=== PATIENT | female | born 1960 | race Caucasian/White ===

== ENCOUNTER → 2020-06-13 | Outpatient (CLI) | payer BC ==
--- NOTE | 2020-06-15 09:27 | MM ---
Reason for exam: screening (asymptomatic). History: Patient is postmenopausal. Family history of breast cancer in mother at age 68. Benign cyst aspiration of the right breast, July 27, 2004. Lumpectomy of the right breast, 1994. Cyst aspiration of the right breast. Physical Findings: A clinical breast exam by your physician is recommended on an annual basis and results should be correlated with mammographic findings. MG Screening Mammo w CAD Bilateral CC and MLO view(s) were taken. No prior studies available for comparison. The breast tissue is heterogeneously dense. This may lower the sensitivity of mammography. No significant changes when compared with prior studies. ASSESSMENT: Negative, BI-RAD 1 RECOMMENDATION: Routine screening mammogram of both breasts in 1 year.
== END | disposition home or self-care (01) ==
LOC: RADMAMWWP 07:55
PROVIDERS: ATTEND Internal Medicine
DX: Z12.31 Encounter for screening mammogram for malignant neoplasm of breast (principal)
CPT/HCPCS: 77067

== ENCOUNTER → 2021-10-17 | Outpatient (CLI) | payer BC ==
--- NOTE | 2021-10-19 09:33 | MM ---
Reason for exam: screening (asymptomatic). Last mammogram was performed 1 year and 4 months ago. History: Patient is postmenopausal. Family history of breast cancer in mother at age 68. Benign cyst aspiration of the right breast, July 27, 2004. Lumpectomy of the right breast, 1994. Cyst aspiration of the right breast. Physical Findings: A clinical breast exam by your physician is recommended on an annual basis and results should be correlated with mammographic findings. MG Screening Mammo w CAD Bilateral CC and MLO view(s) were taken. Prior study comparison: June 13, 2020, bilateral MG screening mammo w CAD. No significant changes when compared with prior studies. ASSESSMENT: Benign, BI-RAD 2 RECOMMENDATION: Routine screening mammogram of both breasts in 1 year.
== END | disposition home or self-care (01) ==
LOC: RADMAMWWP 07:29
PROVIDERS: ATTEND Internal Medicine
DX: Z12.31 Encounter for screening mammogram for malignant neoplasm of breast (principal)
CPT/HCPCS: 77067

== ENCOUNTER → 2023-12-24 | Outpatient (CLI) | payer MEDICARE ==
--- NOTE | 2023-12-24 20:33 | BD ---
EXAMINATION TYPE: Axial Bone Density DATE OF EXAM: 12/24/2023 CLINICAL HISTORY: 63 years old Female. ICD-10 CODE: N958 MENOPAUSE AND PERIMENOPAUSAL DISORDERS Height: 64 Weight: 159.3 FRAX RISK QUESTIONS: Alcohol (3 or more units per day): no Family History (Parent hip fracture): no Glucocorticoids (More than 3mos): no (Ex: prednisone, prednisolone, methylprednisolone, dexamethasone, and hydrocortisone). History of Fracture in Adulthood: yes Secondary Osteoporosis: 1. Type 1 Diabetes: no 2. Hyperthyroidism: no 3. Menopause before 45: yes 4. Malnutrition: no 5. Chronic liver disease: no Rheumatoid Arthritis: no Current Tobacco Use: no RISK FACTORS HISTORY OF: History of Wrist Fracture: left/ 2002 When: Surgery to Spine/Hip(right/left)/Wrist (right/left): no EXAM MEASUREMENTS: Bone mineral densitometry was performed using the [employer] System. Bone mineral density as measured about the Lumbar spine is: ----- L1-L4(G/cm2): 0.870 T Score Values are as follows: ----- L1: -2.7 ----- L2: -2.8 ----- L3: -2.3 ----- L4: -2.7 ----- L1-L4: -2.6 Z Score Values are as follows: ----- L1: -1.4 ----- L2: -1.5 ----- L3: -0.9 ----- L4: -1.4 ----- L1-L4: -1.2 Bone mineral density : baseline Bone mineral density about the R hip (g/cm2): 0.750 Bone mineral density about the L hip (g/cm2): 0.799 T Score values are as follows: -----R Neck: -2.3 -----L Neck: -1.8 -----R Total: -2.0 -----L Total: -1.7 Z Score values are as follows: -----R Neck: -1.0 -----L Neck: -0.5 -----R Total: -1.0 -----L Total: -0.6 Bone mineral density : baseline FRAX%s: The graph provided illustrates a 19.7% chance for a major osteoporotic fx and a 3.8% chance f or the hips probability for fx in 10 years time. IMPRESSION: Osteoporosis (T Score less than -2.5). There is increased fracture risk and therapy is usually indicated based on age. Re-Screen 1-2 years. NOTE: T-SCORE=SD OF THE YOUNG ADULT MEAN.
--- NOTE | 2023-12-25 18:42 | MM ---
Reason for Exam: Screening (asymptomatic). Last mammogram was performed 1 year(s) and 1 month(s) ago. Patient History: Menarche at age 14. First Full-Term at age 21. Postmenopausal. Cyst Aspiration on the Right side. 1994, Lumpectomy on the Right side. 07/27/2004, Benign Cyst Aspiration on the right side. Mother had breast cancer, age 68. Risk Values: Susan 5 year model risk: 2.9%. NCI Lifetime model risk: 10.7%. Prior Study Comparison: 06/13/2020 Bilateral Screening Mammogram, [facility]. 10/17/2021 Bilateral Screening Mammogram, [facility]. 11/27/2022 Bilateral MG screening mammo w CAD, [facility]. Tissue Density: The breasts are heterogeneously dense, which may obscure small masses. Findings: Analyzed By CAD. Microclip right breast from prior biopsy. Grouped and regional microcalcifications subareolar left breast not well seen previously. Further magnification views are recommended. Overall Assessment: Incomplete: need additional imaging evaluation, BI-RAD 0 Management: Special View Mammogram of the left breast. . [facility] will attempt to contact patient to return for supplemental views. Electronically signed and approved by: Stacy Kapadia M.D. Radiologist
== END | disposition home or self-care (01) ==
LOC: RADBDWWP 10:16
PROVIDERS: ATTEND Internal Medicine
DX: Z12.31 Encounter for screening mammogram for malignant neoplasm of breast (principal); M81.0 Age-related osteoporosis without current pathological fracture; M85.89 Other specified disorders of bone density and structure, multiple sites; N95.8 Other specified menopausal and perimenopausal disorders; Z78.0 Asymptomatic menopausal state; Z80.3 Family history of malignant neoplasm of breast
CPT/HCPCS: 77063; 77067; 77080

== ENCOUNTER → 2023-12-27 | Outpatient (CLI) | payer MEDICARE ==
--- NOTE | 2023-12-27 13:54 | MM ---
Reason for Exam: Follow-up at short interval from prior study. Last screening mammogram was performed less than 1 month ago. Patient History: Menarche at age 14. First Full-Term at age 21. Postmenopausal. Cyst Aspiration on the Right side. 1994, Lumpectomy on the Right side. 07/27/2004, Benign Cyst Aspiration on the right side. Mother had breast cancer, age 68. Risk Values: Susan 5 year model risk: 2.9%. NCI Lifetime model risk: 10.7%. Prior Study Comparison: 10/17/2021 Bilateral Screening Mammogram, [facility]. 11/27/2022 Bilateral MG screening mammo w CAD, [facility]. 12/24/2023 Bilateral MG 3D screening mammo w/cad, [facility]. Tissue Density: Left: The breasts are heterogeneously dense, which may obscure small masses. Findings: Analyzed By CAD. Increasing, slightly heterogeneous and punctate calcifications central anterior left breast particularly on the CC view. These appear slightly less clustered on the lateral view. Sampling from a CC from above approach can be utilized. Overall Assessment: Suspicious, BI-RAD 4 Management: Stereotactic Core Biopsy of the left breast. Results were given to the patient verbally at the time of exam. Electronically signed and approved by: Stacy Kapadia M.D. Radiologist
== END | disposition home or self-care (01) ==
LOC: RADMAMWWP 13:20
PROVIDERS: ATTEND Internal Medicine
DX: R92.332 Mammographic heterogeneous density, left breast (principal); Z80.3 Family history of malignant neoplasm of breast; Z78.0 Asymptomatic menopausal state
CPT/HCPCS: 77065; G0279; 77061

== ENCOUNTER → 2024-01-16 | Day surgery (SDC) | payer MEDICARE ==
[~2024-01-16] MED LIST: ALPRAZolam 0.25 MG TAB PO PRN; ALPRAZolam 0.5 MG TAB PO PRN
--- NOTE | 2024-01-22 10:30 | MM ---
Risk Values: Susan 5 year model risk: 2.9%. NCI Lifetime model risk: 10.7%. Prior Study Comparison: 11/27/2022 Bilateral MG screening mammo w CAD, [facility]. 12/24/2023 Bilateral MG 3D screening mammo w/cad, [facility]. 12/27/2023 Left MG 3D work up w/cad , [facility]. Pathology Description: Marker Left Behind. Specimen Radiograph. Calcium Found: Yes Needle Type: Eviva Cores: 7 Skin Nicks: 1 Gauge: 9 The calcifications in question within the left breast were targeted by the undersigned. Procedure was performed by the undersigned. Informed consent was obtained and all of the patients questions were answered. The standard sterile technique was utilized and appropriate local anesthesia was obtained with 1% licocaine. Mammotome probe was advanced and multiple core samples were obtained and sent to pathology for interpretation. Microclip marker was deployed at the site of biopsy. Post procedural mammogram demonstrates appropriate deployment of radiopaque clip marker. The patient tolerated the procedure well and left the department in stable condition. Pathology results are pending. Impression: Successful stereotactic core biopsy left breast. Pathology Results: Result: High risk, Atypical ductal hyperplasia. LEFT BREAST, STEREOTACTIC CORE BIOPSY: Focal atypical ductal hyperplasia (ADH) (see note). Proliferative fibrocystic change with focal microcalcification, sclerosing adenosis, columnar cell change, apocrine metaplasia and florid usual ductal hyperplasia. Notes Examination reveals a 1 mm area of ADH in block A2. In order to confirm the diagnosis, immunostaining is performed with appropriate positive controls on block A2. CK5/6 staining on block A2 stains positive with a mosaic pattern within focal of usual ductal hyperplasia and focally negative within the minute atypical intraductal proliferation within block A2. E-Cadherin staining on block A2 is positive. CK5/6 staining on block A2 also stains positive within myoepithelial cells surrounding available ductal structures. No evidence of invasive malignancy is seen within the current specimen. Overall Assessment: High risk Management: Surgical Consultation of the left breast. Electronically signed and approved by: Vladimir Saxena M.D. Radiologis
== END ==
LOC: RADMAMWWP 09:55
PROVIDERS: ATTEND Internal Medicine
DX: N60.82 Other benign mammary dysplasias of left breast (principal); N60.22 Fibroadenosis of left breast; R92.8 Other abnormal and inconclusive findings on diagnostic imaging of breast
CPT/HCPCS: 88305; 88342; 88341; 19081; A4648